=== PATIENT | male | born 1995 | race Caucasian/White ===

== ENCOUNTER 2016-12-16 18:20 | Observation (INO) | payer OTHER ==
[~2016-12-16] VITALS: Ht 172.7 cm; Wt 84.0 kg
[2016-12-16 18:50] LABS: BLOOD UREA NITROGEN 13 mg/dL (7-18)
[2016-12-16 18:54] LABS: ACETAMINOPHEN < 2 mcg/mL (10-30); ASPARTATE AMINO TRANSFERASE 21 U/L (15-37)
[2016-12-16 19:15] LABS: DAU SCREEN DISCLAIMER
[2016-12-16] MEDS ORDERED: ACETAMINOPHEN 325 MG TABLET PO PRN (23:00)
[2016-12-16] MEDS ORDERED: DOCUSATE 100 MG CAPSULE PO PRN (23:00)
[2016-12-16] MEDS ORDERED: DIPHENHYDRAMINE 50 MG CAPSULE PO PRN (23:00)
[2016-12-16] MEDS ORDERED: ONDANSETRON ODT 4 MG PO PRN (23:00)
[2016-12-16 23:28] VITALS: BP 122/81
[2016-12-17 08:03] VITALS: BP 114/56
[2016-12-17 19:47] VITALS: BP 112/70
[2016-12-18 08:00] VITALS: BP 110/68
[2016-12-18 19:44] VITALS: BP 119/72
[2016-12-19 08:00] VITALS: BP 110/70
[2016-12-19 19:59] VITALS: BP 113/71
[2016-12-20 07:42] VITALS: BP 115/77
== END 2016-12-20 15:11 | disposition home or self-care (01) ==
LOC: SUATTDRO 22:40 → ED 22:40 → INTOOBSV 22:50 → EDIP 22:50 → 3E 23:26
PROVIDERS: ADMIT Family Medicine; ATTEND Family Medicine
DX: R45.851 Suicidal ideations (principal); F32.9 Major depressive disorder, single episode, unspecified
CPT/HCPCS: 36415; 80053; 80307; 80329; 81003; 85025; 99285; G0378; G0480